=== PATIENT | male | born 1975 | race American Indian/Alaskan Native ===

== ENCOUNTER 2021-09-04 17:08 | Inpatient (IN) | payer SELFPAY ==
[2021-09-04] MEDS ORDERED: fentaNYL 100 MCG/2 ML INJ IV ONE (21:19)
[2021-09-04] MEDS ORDERED: NITROGLYCERIN 2% OINT 1 GM TP ONE (21:19)
[2021-09-04] MEDS ORDERED: ASPIRIN 325 MG TAB PO ONE (21:19)
[2021-09-04] MEDS ORDERED: ONDANSETRON 4 MG/2 ML INJ IV ONE (21:19)
--- NOTE | 2021-09-04 21:23 | Emergency Department Report ---
HPI - General Chief Complaint: Chest Pain Time Seen by Provider: 09/04/21 21:10 - HPI HPI: MSE 5 The patient is a 46-year-old male present with chief complaint of chest pain. Patient states his symptoms began 2 days ago with intermittent left-sided chest pain described as sharp in nature. Patient admits to shortness of breath and diaphoresis with this pain states that his left upper extremity has been tingling intermittently. The patient states the pain first started it was so severe it made him drop down to 1 knee. Patient states he went to [facility] and was admitted but left AMA this morning after he was not given any results. He states they were planning on doing a stress test however it 09: 30 this morning he left AMA. Patient currently gets his chest pain score of 3/10. Patient states he cannot recall his last stress test but states last time he had a cardiac catheterization was in 2015 when he had 2 cardiac stents placed ED Past Medical Hx - Past Medical History Previous Medical History?: No Hx Hypertension: Yes - Surgical History Past Surgical History?: No Hx Coronary Stent: Yes (X2, 2016) Additional Surgical History: right ankle fracture repair May 2015 - Family History Family history: no significant - Social History Smoking Status: Current Every Day Smoker (2/3 pack/day) Substance Use Type: Alcohol (Rarely), Marijuana - Medications Home Medications: Home Medications Medication Instructions Recorded Confirmed Last Taken Type Aspirin EC [Ecotrin] 81 mg PO QDAY #30 tablet 11/23/15 Unknown Rx AtorvaSTATin [Lipitor] 40 mg PO QHS #30 tablet 11/23/15 Unknown Rx Clopidogrel [Plavix] 75 mg PO QDAY #30 tablet 11/23/15 Unknown Rx Famotidine [Pepcid] 20 mg PO BID #30 tablet 11/23/15 Unknown Rx Metoprolol [Lopressor TAB] 50 mg PO BID #60 tablet 11/23/15 Unknown Rx Nicotine [Habitrol] 21 mg TD DAILY #30 patch 11/23/15 Unknown Rx lisinopriL [Zestril TAB] 5 mg PO QDAY #30 tablet 11/23/15 Unknown Rx ED Review of Systems ROS: Stated complaint: CHEST PAIN Other details as noted in HPI Constitutional: diaphoresis Eyes: denies: eye pain ENT: denies: throat pain Respiratory: shortness of breath Cardiovascular: chest pain Endocrine: no symptoms reported Gastrointestinal: denies: nausea, vomiting Genitourinary: denies: dysuria Musculoskeletal: denies: back pain Neurological: headache Physical Exam - Physical Exam Physical Exam: GENERAL: The patient is well-developed well-nourished male lying on stretcher not appearing to be in acute distress. [] HEENT: Normocephalic. Atraumatic. Extraocular motions are intact. Patient has moist mucous membranes. NECK: Supple. Trachea midline CHEST/LUNGS: Clear to auscultation. There is no respiratory distress noted. HEART/CARDIOVASCULAR: Regular. There is no tachycardia. There is no gallop rub or murmur. ABDOMEN: Abdomen is soft, nontender. Patient has normal bowel sounds. There is no abdominal distention. SKIN: There is no rash. There is no edema. There is no diaphoresis. NEURO: The patient is awake, alert, and oriented. The patient is cooperative. The patient has no focal neurologic deficits. The patient has normal speech. GCS 15 MUSCULOSKELETAL: There is no evidence of acute injury. ED Medical Decision Making - Lab Data Result diagrams: 09/04/21 21:26 09/04/21 21:26 Laboratory Tests 09/04/21 09/04/21 21:26 21:26 WBC 7.1 RBC 4.92 Hgb 14.9 Hct 45.3 MCV 92 MCH 30 MCHC 33 RDW 13.1 L Plt Count 300 Lymph % (Auto) 30.6 [place] % (Auto) 7.3 Eos % (Auto) 2.9 Baso % (Auto) 1.1 Lymph # (Auto) 2.2 [place] # (Auto) 0.5 Eos # (Auto) 0.2 Baso # (Auto) 0.1 Seg Neutrophils % 58.1 Seg Neutrophils # 4.1 Sodium 137 Potassium 3.9 Chloride 101.9 Carbon Dioxide 20 L Anion Gap 19 BUN 12 Creatinine 0.8 Estimated GFR > 60 BUN/Creatinine Ratio 15 Glucose 103 H Calcium 9.5 Total Creatine Kinase 115 CK-MB (CK-2) < 1.0 CK-MB (CK-2) Rel Index 0.8 Troponin T < 0.010 - EKG Data -: EKG Interpreted by Md EKG shows normal: sinus rhythm Rate: normal - EKG Data When compared to previous EKG there are: no significant change Interpretation: unchanged when compared t (11/23/2015) - Radiology Data Radiology results: image reviewed (Chest x-ray) interpreted by me: Chest x-ray-no definite focal infiltrates, no pneumothorax - Differential Diagnosis ACS, pericarditis, GERD Critical care attestation.: If time is entered above; I have spent that time in minutes in the direct care of this critically ill patient, excluding procedure time. ED Disposition Clinical Impression: Acute chest pain Disposition: ADMITTED INPATIENT Is pt being admited?: Yes Does the pt Need Aspirin: Yes Condition: Fair Instructions: Chest Pain (ED) Time of Disposition: 22:39 (Hospitalist called (Dr. Vann)) Heart Score - HEART Score History: Moderately suspicious EKG: Non-specific Age: 45-65 Risk factors: > 3 risk factors or hx of atherosclerotic disease Troponin: < normal limit HEART Score: 5 - EKG Read Time Time EKG Completed: 17:27 EKG Read Time: 17:31
[2021-09-04] MEDS ORDERED: cloNIDine 0.2 MG TAB PO ONE (21:44)
[2021-09-04 21:48] LABS: Basophils # (Auto) 0.1 K/mm3 (0.0-0.1); Basophils % (Auto) 1.1 % (0.0-1.8); Eosinophils # (Auto) 0.2 K/mm3 (0.0-0.4); Eosinophils % (Auto) 2.9 % (0.0-4.3); Hematocrit 45.3 % (35.5-45.6); Hemoglobin 14.9 gm/dl (11.8-15.2); Lymphocytes # (Auto) 2.2 K/mm3 (1.2-5.4); Lymphocytes % (Auto) 30.6 % (13.4-35.0); Mean Corpuscular HGB Conc 33 % (32-34); Mean Corpuscular Volume 92 fl (84-94); Monocytes # (Auto) 0.5 K/mm3 (0.0-0.8); Monocytes % (Auto) 7.3 % (0.0-7.3); Platelet Count 300 K/mm3 (140-440); Red Blood Count 4.92 M/mm3 (3.65-5.03); Red Cell Distribution Width 13.1 % (13.2-15.2)
[2021-09-04 22:12] LABS: BUN/Creatinine Ratio 15; Blood Urea Nitrogen 12 mg/dL (9-20); Calcium 9.5 mg/dL (8.4-10.2); Hemolysis Index 17
[2021-09-04 22:17] LABS: Creatine Kinase MB < 1.0 ng/mL (0.0-4.0)
--- NOTE | 2021-09-04 22:25 | XRay Report ---
CHEST 2 VIEWS INDICATION / CLINICAL INFORMATION: chest pain. COMPARISON: 11/23/2015 FINDINGS: SUPPORT DEVICES: None. HEART / MEDIASTINUM: No significant abnormality. LUNGS / PLEURA: No significant pulmonary or pleural abnormality. No pneumothorax. ADDITIONAL FINDINGS: No significant additional findings. IMPRESSION: 1. No acute findings. Signer Name: Vik Mendez MD Signed: 09/04/2021 10:21 PM Workstation Name: [id number]
[2021-09-05] MEDS ORDERED: NITROGLYCERIN 0.4 MG TAB SUBL SL PRN (00:19)
[2021-09-05] MEDS ORDERED: traMADol 50 MG TAB PO PRN (00:19)
[2021-09-05] MEDS ORDERED: MORPHINE 2 MG/1 ML INJ IV PRN (00:19)
[2021-09-05] MEDS ORDERED: ACETAMINOPHEN 325 MG TAB PO PRN (00:19)
--- NOTE | 2021-09-05 00:26 | History and Physical Report ---
History of Present Illness Date of examination: 09/05/21 Date of admission: 09/05/21 Chief complaint: Chest pain History of present illness: 46 years old male with history of hypertension and cardiac a stent was brought to the hospital because of chest pain which is sharp in nature 3/10 intermittent in the left chest for the last 2 days.Patient admits to shortness of breath and diaphoresis with this pain states that his left upper extremity has been tingling intermittently. Patient states he went to [facility] and was admitted but left AMA this morning after he was not given any results. He states they were planning on doing a stress test however it 09: 30 this morning he left AMA. Patient states he cannot recall his last stress test but states last time he had a cardiac catheterization was in 2015 when he had 2 cardiac stents placed. In the emergency room initial cardiac enzyme is negative troponin is 0.010. Chest x-ray shows no acute finding.'s were going to admit the patient we will put the patient on chest pain pathway will do a Lexiscan and serial enzyme Past History Past Medical History: hypertension Past Surgical History: Other (Cardiac a stent) Medications and Allergies Allergies Allergy/AdvReac Type Severity Reaction Status Date / Time naproxen [From Naprosyn] Allergy Hives Verified 09/04/21 17:13 Home Medications Medication Instructions Recorded Confirmed Last Taken Type Aspirin EC [Ecotrin] 81 mg PO QDAY #30 tablet 11/23/15 Unknown Rx AtorvaSTATin [Lipitor] 40 mg PO QHS #30 tablet 11/23/15 Unknown Rx Clopidogrel [Plavix] 75 mg PO QDAY #30 tablet 11/23/15 Unknown Rx Famotidine [Pepcid] 20 mg PO BID #30 tablet 11/23/15 Unknown Rx Metoprolol [Lopressor TAB] 50 mg PO BID #60 tablet 11/23/15 Unknown Rx Nicotine [Habitrol] 21 mg TD DAILY #30 patch 11/23/15 Unknown Rx lisinopriL [Zestril TAB] 5 mg PO QDAY #30 tablet 11/23/15 Unknown Rx Review of Systems Cardiovascular: chest pain, shortness of breath, dyspnea on exertion Neurological: tingling Exam - Constitutional Vitals: Temp Pulse Resp BP Pulse Ox 98.4 F 71 18 134/85 98 09/04/21 17:12 09/04/21 23:00 09/04/21 23:00 09/04/21 23:00 09/04/21 23:00 General appearance: Present: no acute distress, well-nourished - EENT Eyes: Present: PERRL ENT: hearing intact, clear oral mucosa - Neck Neck: Present: supple, normal ROM - Respiratory Respiratory effort: normal Respiratory: bilateral: diminished - Cardiovascular Heart Sounds: Present: S1 & S2. Absent: rub, click - Extremities Extremities: pulses symmetrical, No edema Peripheral Pulses: within normal limits - Abdominal General gastrointestinal: Present: soft, non-tender, non-distended, normal bowel sounds Male genitourinary: Present: normal - Integumentary Integumentary: Present: clear, warm, dry - Musculoskeletal Musculoskeletal: gait normal, strength equal bilaterally - Psychiatric Psychiatric: appropriate mood/affect, intact judgment & insight - Neurologic Neurologic: CNII-XII intact, moves all extremities HEART Score - HEART Score EKG: Non-specific Age: 45-65 Risk factors: > 3 risk factors or hx of atherosclerotic disease Troponin: Troponin T < 0.010 ng/mL (0.00-0.029) 09/04/21 21: Troponin: < normal limit Results - Labs CBC & Chem 7: 09/04/21 21:26 09/04/21 21: Labs: Laboratory Last Values WBC 7.1 K/mm3 (4.5-11.0) 09/04/21 21: RBC 4.92 M/mm3 (3.65-5.03) 09/04/21 21: Hgb 14.9 gm/dl (11.8-15.2) 09/04/21: Hct 45.3 % (35.5-45.6) 09/04/21 21: MCV 92 fl (84-94) 09/04/21 21: MCH 30 pg (28-32) 09/04/21 21: MCHC 33 % (32-34) 09/04/21 21: RDW 13.1 % (13.2-15.2) L 09/04/21 21: Plt Count 300 K/mm3 (140-440) 09/04/21 21: Lymph % (Auto) 30.6 % (13.4-35.0) 09/04/21: [place] % (Auto) 7.3 % (0.0-7.3) 09/04/21 21:26 Eos % (Auto) 2.9 % (0.0-4.3) 09/04/21 21: Baso % (Auto) 1.1 % (0.0-1.8) 09/04/21: Lymph # (Auto) 2.2 K/mm3 (1.2-5.4) 09/04/21: [place] # (Auto) 0.5 K/mm3 (0.0-0.8) 09/04/21: Eos # (Auto) 0.2 K/mm3 (0.0-0.4) 09/04/21: Baso # (Auto) 0.1 K/mm3 (0.0-0.1) 09/04/21: Seg Neutrophils % 58.1 % (40.0-70.0) 09/04/21: Seg Neutrophils # 4.1 K/mm3 (1.8-7.7) 09/04/21 21:26 Sodium 137 mmol/L (137-145) 09/04/21 21: Potassium 3.9 mmol/L (3.6-5.0) 09/04/21 21: Chloride 101.9 mmol/L (98-107) 09/04/21 21: Carbon Dioxide 20 mmol/L (22-30) L 09/04/21: Anion Gap 19 mmol/L 09/04/21 21: BUN 12 mg/dL (9-20) 09/04/21 21: Creatinine 0.8 mg/dL (0.8-1.3) 09/04/21 21: Estimated GFR > 60 ml/min 09/04/21 21:26 BUN/Creatinine Ratio 15 % 09/04/21 21: Glucose 103 mg/dL (75-100) H 09/04/21 21: Calcium 9.5 mg/dL (8.4-10.2) 09/04/21 21: Total Creatine Kinase 115 units/L (55-170) 09/04/21 21:26 CK-MB (CK-2) < 1.0 ng/mL (0.0-4.0) 02/07/22 21:26 CK-MB (CK-2) Rel Index 0.8 (0-4) 09/04/21 21:26 Troponin T < 0.010 ng/mL (0.00-0.029) 09/04/21 21:26 - Imaging and Cardiology Chest x-ray: report reviewed Assessment and Plan VTE prophylaxis?: Chemical Plan of care discussed with patient/family: Yes - Patient Problems (1) ACS (acute coronary syndrome) Current Visit: Yes Status: Acute Plan to address problem: Admit the patient to the medical telemetry. Aspirin 325 mg p.o. daily. Plavix 75 mg p.o. daily. Lipitor 40 mg p.o. daily. Nitroglycerin as needed. Serial cardiac enzymes. Lexiscan. Consult cardiology if needed (2) CAD (coronary artery disease) Current Visit: Yes Status: Acute Plan to address problem: Aspirin 325 mg p.o. daily. Plavix 75 mg p.o. daily. Lipitor 40 mg p.o. daily. Nitroglycerin as needed. Serial cardiac enzymes. Lexiscan. Consult cardiology if needed (3) Tobacco abuse Current Visit: Yes Status: Acute Plan to address problem: We counseled the patient regarding quitting smoking. We will put the patient on nicotine patch 21 mg to the skin daily (4) Uncontrolled hypertension Current Visit: No Status: Acute Plan to address problem: Lisinopril 5 mg p.o. daily. Metoprolol 50 mg p.o. twice daily. We will continue the home medication. We will monitor the blood pressure closely (5) Hyperlipidemia Current Visit: No Status: Chronic Plan to address problem: Lipitor 40 mg p.o. daily. Recheck lipid panel. Continue home medication (6) DVT prophylaxis Current Visit: Yes Status: Acute Plan to address problem: Heparin 5000 units subcu every 8 hours for DVT prophylaxis. Protonix 40 mg p.o. daily for GI prophylaxis. Patient is a full code
[2021-09-05] MEDS ORDERED: SODIUM CHLORIDE 0.9% 1000 ML 1,000 ML IV SCH (00:30)
[2021-09-05 04:58] LABS: Basophils % (Auto) 0.8 % (0.0-1.8); Eosinophils # (Auto) 0.2 K/mm3 (0.0-0.4); Eosinophils % (Auto) 3.2 % (0.0-4.3); Hematocrit 42.6 % (35.5-45.6); Hemoglobin 14.1 gm/dl (11.8-15.2); Lymphocytes # (Auto) 1.9 K/mm3 (1.2-5.4); Mean Corpuscular HGB Conc 33 % (32-34); Mean Corpuscular Volume 92 fl (84-94); Monocytes # (Auto) 0.6 K/mm3 (0.0-0.8); Monocytes % (Auto) 9.9 % (0.0-7.3); Platelet Count 285 K/mm3 (140-440); Red Blood Count 4.62 M/mm3 (3.65-5.03); Red Cell Distribution Width 12.8 % (13.2-15.2)
[2021-09-05 05:10] LABS: BUN/Creatinine Ratio 13; Blood Urea Nitrogen 12 mg/dL (9-20); Calcium 9.2 mg/dL (8.4-10.2); Hemolysis Index 0
[2021-09-05] MEDS: HEPARIN 5,000 UNIT/1 ML VIAL SUB-Q SCH ×3 (07:10→21:59)
[2021-09-05] MEDS ORDERED: REGADENOSON 0.4 MG/5 ML INJ IV ONE (07:14)
--- NOTE | 2021-09-05 09:03 | Electrocardiograph Report ---
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
--- NOTE | 2021-09-05 11:25 | Consultation ---
History of Present Illness Consult date: 09/05/21 Consult reason: chest pain History of present illness: Patient is a 46-year-old man with coronary artery disease. In 2016, he was h ospitalized here with acute coronary syndrome, ultimately underwent implantation of a 2.75 mm drug-eluting stent to the obtuse marginal branch of the circumflex. Comorbidities include chronic hypertension and chronic tobacco abuse. He admits to noncompliance with medical therapy, has not seen a doctor in the past several years, and continues to smoke cigarettes. He is admitted to the hospital currently with chest pain. He describes left upper chest pain which is not reliably exertional, and usually lasts a few seconds at a time. It was not reminiscent of his previous anginal pain which at that time consisted of a sustained substernal burning. He was evaluated in the emergency room, underwent a rule out protocol, and an exercise thallium stress test was ordered by the medical service. EKG on presentation was a sinus rhythm with no ST or T wave changes, normal ECG. Troponin levels x2 were normal. Chest x-ray reveals normal-sized cardiac silhouette and clear lungs. He underwent stress test during which he exercised for 6 minutes of a Dinesh protocol, no chest pain, no ST changes of ischemia. Myocardial perfusion images are pending. Past History Past Medical History: acute [place], CAD, hypertension Past Surgical History: PTCA Social history: smoking Medications and Allergies Allergies Allergy/AdvReac Type Severity Reaction Status Date / Time naproxen [From Naprosyn] Allergy Hives Verified 09/05/21 10:20 Home Medications Medication Instructions Recorded Confirmed Last Taken Type No Known Home Medications [No 09/05/21 09/05/21 Unknown History Reported Home Medications] Active Meds: Active Medications Acetaminophen (Acetaminophen 325 Mg Tab) 650 mg PO Q6H PRN PRN Reason: Pain, Mild (1-3) Aspirin (Aspirin Ec 325 Mg Tab) 325 mg PO QDAY EDUARDO Atorvastatin Calcium (Atorvastatin 40 Mg Tab) 40 mg PO QHS EDUARDO Clopidogrel Bisulfate (Clopidogrel 75 Mg Tab) 75 mg PO QDAY EDUARDO Heparin Sodium (Porcine) (Heparin 5,000 Unit/1 Ml Vial) 5,000 unit SUB-Q Q8HR EDUARDO Last Admin: 09/05/21 07:10 Dose: 5,000 unit Sodium Chloride (Nacl 0.9% 1000 Ml) 1,000 mls @ 100 mls/hr IV DIRECT EDUARDO Lisinopril (Lisinopril 5 Mg Tab) 5 mg PO QDAY EDUARDO Metoprolol Tartrate (Metoprolol Tartrate 50 Mg Tab) 50 mg PO BID EDUARDO Morphine Sulfate (Morphine 2 Mg/1 Ml Inj) 2 mg IV Q5MIN PRN PRN Reason: Chest Pain unrelieved by NTG Nicotine (Nicotine 21 Mg/24 Hr Patch) 21 mg TD DAILY [facility] Nitroglycerin (Nitroglycerin 0.4 Mg Tab Subl) 0.4 mg SL Q5M PRN PRN Reason: Chest Pain Pantoprazole Sodium (Pantoprazole 40 Mg Tab) 40 mg PO QDAY [facility] Sodium Chloride (Sodium Chloride 0.9% 10 Ml Flush Syringe) 10 ml IV PRN PRN PRN Reason: LINE FLUSH Tramadol HCl (Tramadol 50 Mg Tab) 50 mg PO Q6H PRN PRN Reason: Pain, Moderate (4-6) Review of Systems Cardiovascular: chest pain, no orthopnea, no palpitations, no rapid/irregular heart beat, no edema, no syncope, no lightheadedness, no shortness of breath Physical Examination Vital Signs Temp Pulse Resp BP Pulse Ox 98.4 F 86 18 187/119 99 09/04/21 17:12 09/04/21 17:12 09/04/21 17:12 09/04/21 17:12 09/04/21 17:12 General appearance: no acute distress HEENT: Positive: PERRL Neck: Positive: neck supple Cardiac: Positive: Reg Rate and Rhythm Lungs: Positive: Decreased Breath Sounds Neuro: Positive: Grossly Intact Abdomen: Positive: Soft Male genitourinary: Positive: deferred Skin: Positive: Clear Extremities: Absent: edema Results 09/05/21 03:40 09/05/21 03:40 Cardiac Enzymes 09/04/21 Range/Units 21:26 CK-MB (CK-2) < 1.0 (0.0-4.0) ng/mL CBC 09/04/21 09/05/21 Range/Units 21:26 03:40 WBC 7.1 6.2 (4.5-11.0) K/mm3 RBC 4.92 4.62 (3.65-5.03) M/mm3 Hgb 14.9 14.1 (11.8-15.2) gm/dl Hct 45.3 42.6 (35.5-45.6) % Plt Count 300 285 (140-440) K/mm3 Lymph # (Auto) 2.2 1.9 (1.2-5.4) K/mm3 [place] # (Auto) 0.5 0.6 (0.0-0.8) K/mm3 Eos # (Auto) 0.2 0.2 (0.0-0.4) K/mm3 Baso # (Auto) 0.1 0.0 (0.0-0.1) K/mm3 Comprehensive Metabolic Panel 09/04/21 09/05/21 Range/Units 21:26 03:40 Sodium 137 141 (137-145) mmol/L Potassium 3.9 4.0 (3.6-5.0) mmol/L Chloride 101.9 104.1 (98-107) mmol/L Carbon Dioxide 20 L 24 (22-30) mmol/L BUN 12 12 (9-20) mg/dL Creatinine 0.8 0.9 (0.8-1.3) mg/dL Glucose 103 H 104 H (75-100) mg/dL Calcium 9.5 9.2 (8.4-10.2) mg/dL EKG interpretations - EKG Sinus rhythms and dysrhythmias: sinus rhythm Assessment and Plan - Patient Problems (1) Chest pain Current Visit: Yes Status: Acute Plan to address problem: Patient presented with somewhat atypical chest pain, not reminiscent of his prior angina. Serial ECGs and serial troponin levels were normal. He has undergone an exercise stress test, 6 minutes of a Dinesh protocol for 7 METS. Myocardial perfusion images are pending. (2) Hypertension Current Visit: Yes Status: Acute Plan to address problem: Patient has a history of hypertension for which he admits noncompliance with medical therapy and physician follow-ups. His blood pressure was 187 systolic on presentation. We will resume optimal blood pressure management in addition to guideline directed medical therapy for his history of coronary artery disease. He has also been strongly advised by me to discontinue smoking as part of an aggressive risk factor modification strategy.
[2021-09-05] MEDS: CLOPIDOGREL 75 MG TAB PO SCH (13:04)
[2021-09-05] MEDS: METOPROLOL TARTRATE 50 MG TAB PO SCH ×2 (13:04→21:59)
[2021-09-05] MEDS: PANTOPRAZOLE 40 MG TAB PO SCH (13:04)
[2021-09-05] MEDS: LISINOPRIL 5 MG TAB PO SCH (13:04)
[2021-09-05] MEDS: NICOTINE 21 MG/24 HR PATCH TD SCH (13:09)
--- NOTE | 2021-09-05 13:28 | Nuclear Medicine Report ---
APPROVED REPORT Exam: Nuclear Stress Test Indication: Chest pain Patient Location: ED-[facility] DEPARTMENT Ht: 6 ft 0 in Wt: 239 lbs BSA: 2.30 m2 HR: 72 bpmBP: 145/95 mmHgBMI: 32.41 Rhythm: Sinus Rhythm , First degree AV Block Stress Test Details Stress Test: Exercise stress testing was performed using a Dinesh protocol. HR Resting HR: 75 bpm Max HR Achieved: 115 bpm Max Heart Rate (APMHR): 175 bpm Target HR (85% APMHR): 148 bpm % of APMHR: 65 Recovery HR: 81 bpm HR response to stress: Normal HR response to stress BP Resting BP: 145/95 mmHg Max BP: 172/111 mmHg Recovery BP: 157/89 mmHg BP response to stress: Abnormal hypertensive response to stress. ECG Resting ECG: Sinus Rhythm Stress ECG: Sinus Tachycardia ST Change: None Arrhythmia: None Recovery ECG: Sinus Rhythm Recovery ST Change: None Recovery Arrhythmia: None Clinical Reason for Termination: Fatigue Stress Symptoms: None Exercise duration: 6 min 00 sec Exercise capacity: 7.2 METs Overall Exercise Capacity for Age: Poor Stress ECG Conclusion The patient exercised for 6 minutes of a Dinesh protocol, completing stage II and achieving 7 METS. There was no chest pain, no ST changes of ischemia, no dysrhythmias. Myocardial perfusion images are pending for final test interpretation. NM EXAM: Myocardial Perfusion REST/STRESS Imaging Protocol: Rest Tc-99m/Stress Tc-99m 1 day Resting Data Rest SPECT myocardial perfusion imaging was performed in supine position 10 minutes following the intravenous injection of 28 mCi of Tc-99m Myoview. Time of rest injection: 709 Date: 09/05/2021 Pharmacologic Stress Gated Stress SPECT was performed 30 minutes after stress injection. Exercise Stress At peak stress, the patient was injected intravenously with 28mCi of Tc-99m Myoview. Time of stress injection: 1008 Gated Stress SPECT was performed 20 minutes after stress injection. The images were gated to evaluate regional wall motion and calculate left ventricular ejection fraction. Study Data TID = 1.07. Perfusion Wall Motion Gated analysis suggest left ventricular systolic function at the lower limits of normal with ejection fraction calculated at 49%. Nuclear Conclusion ECG Findings: negative for ischemia Clinical Findings: negative for ischemia Exercise Capacity: normal Left Ventricular Function: normal Risk Study: low Average exercise capacity, no chest pain and no ischemic changes on ECG. No significant reversible defects on myocardial perfusion imaging. Left ventricular systolic function at lower limits of normal, ejection fraction is borderline, calculated at 49%. Negative study. Clinical correlation is recommended. Conclusion The patient exercised for 6 minutes of a Dinesh protocol, completing stage II and achieving 7 METS. There was no chest pain, no ST changes of ischemia, no dysrhythmias. Myocardial perfusion images are pending for final test interpretation.
--- NOTE | 2021-09-05 17:17 | Event Note ---
Date: 09/05/21 The patient was seen and evaluated this morning, he was found to be hemodynamically stable. The patient will be evaluated by cardiology and undergo a stress test for further evaluation.
[2021-09-06] MEDS: HEPARIN 5,000 UNIT/1 ML VIAL SUB-Q SCH ×2 (05:06→16:26)
[2021-09-06 08:37] VITALS: BP 141/99
[2021-09-06] MEDS: NICOTINE 21 MG/24 HR PATCH TD SCH (09:49)
[2021-09-06] MEDS: PANTOPRAZOLE 40 MG TAB PO SCH (09:49)
[2021-09-06] MEDS: LISINOPRIL 5 MG TAB PO SCH (09:49)
[2021-09-06] MEDS: METOPROLOL TARTRATE 50 MG TAB PO SCH (09:49)
[2021-09-06] MEDS: CLOPIDOGREL 75 MG TAB PO SCH (09:49)
--- NOTE | 2021-09-06 09:56 | Electrocardiograph Report ---
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
[2021-09-06] MEDS ORDERED: ASPIRIN EC 325 MG TAB PO SCH (10:00)
--- NOTE | 2021-09-06 10:01 | Electrocardiograph Report ---
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
--- NOTE | 2021-09-06 12:16 | Discharge Summary ---
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 Procedures: Nuclear stress test Hospital course: Patient is a 46-year-old male with past medical history of CAD complicated by drug-eluting stent x2, hypertension, tobacco dependence, medication noncompliance, and morbid obesity who presented with acute midsternal chest pain that he described as similar to his previous chest pain when he had an IL in the past. In the ED, the patient was hemodynamically stable and had negative troponins x2. Chest x-ray was unrevealing for any acute abnormalities. The patient underwent a myocardial perfusion stress that was unremarkable for ischemia, chest pain, ST changes, or dysrhythmias. Patient is medically cleared for discharge. The patient was counseled about medication compliance and following up with his medical providers. The patient expresses understanding. Disposition: 01 HOME / SELF CARE / HOMELESS Final Discharge Diagnosis (Prints w/discharge instructions): Acute chest pain, tobacco dependence, hypertension, hyperlipidemia, morbid obesity, CAD Time spent for discharge: 45 min Core Measure Documentation - Palliative Care Palliative Care/ Comfort Measures: Not Applicable - Core Measures Any of the following diagnoses?: none Exam - Constitutional Vitals: Temp Pulse Resp BP Pulse Ox 98.2 F 70 18 141/99 97 09/06/21 08:36 09/06/21 08:36 09/06/21 08:36 09/06/21 08:36 09/06/21 08:36 General appearance: Present: no acute distress, well-nourished, obese - EENT Eyes: Present: PERRL, EOM intact ENT: hearing intact, clear oral mucosa, dentition normal - Neck Neck: Present: supple, normal ROM - Respiratory Respiratory effort: normal Respiratory: bilateral: CTA - Cardiovascular Rhythm: regular Heart Sounds: Present: S1 & S2 - Extremities Extremities: no ischemia, pulses intact, pulses symmetrical, No edema, normal temperature, normal color, Full ROM Peripheral Pulses: within normal limits - Abdominal General gastrointestinal: Present: soft, non-tender, non-distended, normal bowel sounds Male genitourinary: Present: deferred - Rectal Rectal Exam: deferred - Integumentary Integumentary: Present: clear, warm, dry - Musculoskeletal Musculoskeletal: strength equal bilaterally - Psychiatric Psychiatric: appropriate mood/affect, intact judgment & insight, memory intact, cooperative - Neurologic Neurologic: CNII-XII intact, moves all extremities - Allied Health Allied health notes reviewed: nursing Plan Activity: no restrictions Diet: low fat, low salt Additional Instructions: Patient is a 46-year-old male with past medical history of CAD complicated by drug-eluting stent x2, hypertension, tobacco dependence, medication noncompliance, and morbid obesity who presented with acute midsternal chest pain that he described as similar to his previous chest pain when he had an IL in the past. In the ED, the patient was hemodynamically stable and had negative troponins x2. Chest x-ray was unrevealing for any acute abnormalities. The patient underwent a myocardial perfusion stress that was unremarkable for ischemia, chest pain, ST changes, or dysrhythmias. Patient is medically cleared for discharge. The patient was counseled about medication compliance and following up with his medical providers. The patient expresses understanding. Care Plan Goals: Medically cleared for discharge. Assessment: Patient is a 46-year-old male with past medical history of CAD complicated by drug-eluting stent x2, hypertension, tobacco dependence, medication noncompliance, and morbid obesity who presented with acute midsternal chest pain that he described as similar to his previous chest pain when he had an IL in the past. In the ED, the patient was hemodynamically stable and had negative troponins x2. Chest x-ray was unrevealing for any acute abnormalities. The patient underwent a myocardial perfusion stress that was unremarkable for ischemia, chest pain, ST changes, or dysrhythmias. Patient is medically cleared for discharge. The patient was counseled about medication compliance and following up with his medical providers. The patient expresses understanding. Follow up with: PRIMARY CAREMD [Primary Care Provider] - 7 Days Forms: Work/School Release Form Prescriptions: AtorvaSTATin [Lipitor] 40 mg PO QHS #30 tablet Nicotine [Habitrol] 21 mg TD DAILY #30 patch Metoprolol [Lopressor TAB] 50 mg PO BID #60 tablet Clopidogrel [Plavix] 75 mg PO QDAY #30 tablet lisinopriL [Zestril TAB] 5 mg PO QDAY #30 tablet
--- NOTE | 2021-09-06 14:15 | Progress Note ---
Assessment and Plan - Patient Problems (1) Chest pain Current Visit: Yes Status: Acute Plan to address problem: Patient presented with somewhat atypical chest pain, not reminiscent of his prior angina. Serial ECGs and serial troponin levels were normal. He has u raulrgone an exercise stress test, 6 minutes of a Dinesh protocol for 7 METS. Myocardial perfusion images are negative for ischemia. (2) Hypertension Current Visit: Yes Status: Acute Plan to address problem: Patient has a history of hypertension for which he admits noncompliance with medical therapy and physician follow-ups. His blood pressure was 187 systolic on presentation. We will resume optimal blood pressure management in addition to guideline directed medical therapy for his history of coronary artery d isease. He has also been strongly advised by me to discontinue smoking as part of an aggressive risk factor modification strategy. Subjective Date of service: 09/06/21 Principal diagnosis: Chest pain Interval history: Patient is comfortable, no cardiac complaints, looks and feels well. Objective Vital Signs Temp Pulse Resp BP BP Pulse Ox 09/06/21 08:36 98.2 F 70 18 141/99 97 09/06/21 04:40 98.6 F 67 18 126/73 97 09/06/21 00:58 96 09/06/21 00:21 98.1 F 63 19 106/68 95 09/06/21 00:00 71 09/05/21 21:59 71 140/91 09/05/21 19:24 98.4 F 71 20 140/91 98 09/05/21 15:28 98.1 F 74 18 163/108 99 09/05/21 14:40 98 - Physical Examination General: No Apparent Distress HEENT: Positive: PERRL Neck: Positive: neck supple Cardiac: Positive: Reg Rate and Rhythm Lungs: Positive: Decreased Breath Sounds Neuro: Positive: Grossly Intact Abdomen: Positive: Soft Skin: Positive: Clear Extremities: Absent: edema - EKG Sinus rhythms and dysrhythmias: sinus rhythm
== END 2021-09-06 16:47 | disposition home or self-care (01) | DRG 313 ==
LOC: ED 17:08 → 4A 09-05 00:19
PROVIDERS: ADMIT Hospitalist; ATTEND Student in an Organized Health Care Education/Training Program
DX: R07.89 Other chest pain (principal); Z68.45 Body mass index [BMI] 70 or greater, adult; I25.10 Atherosclerotic heart disease of native coronary artery without angina pectoris; E78.2 Mixed hyperlipidemia; Z88.8 Allergy status to other drugs, medicaments and biological substances; Z20.822 Contact with and (suspected) exposure to COVID-19; E66.01 Morbid (severe) obesity due to excess calories; F17.200 Nicotine dependence, unspecified, uncomplicated; I10 Essential (primary) hypertension; Z79.82 Long term (current) use of aspirin; Z79.899 Other long term (current) drug therapy
CPT/HCPCS: 36415; 71046; 78452; 80048; 82550; 82553; 84484; 85025; 93005; 93010; 93017; G0378; A9502; J1644; J2405; J3010; U0003